=== PATIENT | male | born 1965 | race Caucasian/White ===

== ENCOUNTER 2023-11-23 12:44 | Outpatient (CLI) | payer OTHER, SELFPAY ==
--- NOTE | 2023-11-23 12:59 | ECG_ITS ---
Measurements Intervals [place] Rate: 65 P: -9 NE: 157 QRS: -26 QRSD: 100 T: -6 QT: 421 QTc: 439 Interpretive Statements SINUS RHYTHM BORDERLINE LEFT AXIS DEVIATION [QRS AXIS < -20] NO PREVIOUS ECG AVAILABLE FOR COMPARISON Electronically Signed On 11-23-2023 21:05:35 SYSTEMS MGR by Di Bruce M.D.
== END 2023-11-23 12:45 | disposition home or self-care (01) ==
LOC: ANHSURGERY 12:49
PROVIDERS: PCP Internal Medicine; Visit Provider Surgery
DX: Z01.818 Encounter for other preprocedural examination (principal); K42.9 Umbilical hernia without obstruction or gangrene; E78.00 Pure hypercholesterolemia, unspecified
CPT/HCPCS: 36415; 86850; 86900; 86901; 93005

== ENCOUNTER 2023-11-30 00:33 | Day surgery (SDC) | payer OTHER, SELFPAY ==
[2023-11-17 11:06] VITALS: BMI 36.6
--- NOTE | 2023-11-17 11:12 | PC.NURSE ---
Report to the Outpatient Waiting Room, entrance under the green pavilion located off [facility], at time 6:00 on date 11/30/23. Planned Procedure Time: 7:30. Time changes happen often and if your time is changed the preop area will call you the afternoon before. - You and your visitor will be asked to self-screen and do not enter if you have any COVID symptoms. - A mask is optional within the hospital at this time. Patients may have clear liquids (water, carbonated beverages, clear teas, apple juice) until 3 hours prior to surgery (4:30) with a maximum of 20 ounces. - No food from midnight until time of surgery Take the following medications with a SIP of water the morning of surgery: NONE DO NOT STOP ANY OF YOUR OTHER PRESCRIPTION MEDICATIONS PRIOR TO SURGERY ?EXCEPT THE FOLLOWING Medications to discontinue per physician: N/A Date to take last dose: N/A Please no make-up, nail slovenian, hairspray, perfume, deodorant, or body powder the day of surgery. No jewelry (including any body piercings) or valuables the day of surgery, leave them at home. Please take a shower or bath the night before, or the morning of, surgery with an antibacterial soap. Wear comfortable, loose fitting clothing. - Jewelry must be removed prior to entering the operating room. Rings and piercings that are not removed may be cut off. - The hospital will not accept responsibility for valuables. - Please leave all valuables, including medications, at home the day of surgery. If you are going home after surgery, a licensed putaway driver must drive you home. - NO public transportation without another adult if you receive anesthesia. - We recommend that an adult stay with you for 24 hours following discharge. - We also recommend that you do not drive, make important decision, drink alcoholic beverages, or take any drugs that were not prescribed by your health care provider for at least 24 hours after your discharge time. Follow any additional instructions given to you from your surgeon. If you or anyone in your household have experienced Covid symptoms in the past week, please notify your surgeon or the nurse liaison at the phone number below for possible testing. Telephone instructions given to PT - ANDRES FOSTER and asked if any additional questions and then verbalized understanding. Patient advised to call surgeon office or pre surgery nurse liaison [phone] if any additional questions.
--- NOTE | 2023-11-27 11:18 | PM.SD2 ---
Same Day Admit/Disch: HPI History of Present Illness Chief complaint: Umb Hernia Narrative: Bret Burr is a 58 year old male with a 4+ year history of a hernia just above but part of the umbilicus. He was seen in the office and is taken now to surgery for robotic laparoscopic repair with mesh. 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 Spiritual care concerns: No Same Day Admit/Disch: Med Pre-admit Medications Home Medications Medication Instructions Recorded Confirmed Type ezetimibe 10 mg tablet 10 mg PO DAILY 05/02/23 11/17/23 History ketorolac 10 mg tablet 10 mg PO Q6H 4 days #16 tabs 11/30/23 Rx oxycodone-acetaminophen 5 mg-325 0.5 - 1 tablet PO Q6H PRN pain #10 11/30/23 Rx mg tablet tabs Review of Systems Review of Systems All systems reviewed & are unremarkable except as noted in HPI and below (HPI and those items below) Constitutional Constitutional: Denies chills and Denies fever(s) Cardiovascular Cardiovascular: Denies chest pain, Denies diaphoresis, Denies dyspnea and Denies paroxysmal nocturnal dyspnea Respiratory Respiratory: Denies chest congestion, Denies cough and Denies dyspnea Integumentary/Breasts Skin/Breast: Denies lesions and Denies rash Exam Const: General: comfortable, no acute distress, alert and awake HENMT: Head: normocephalic and atraumatic Mouth: Yes Normal oral and palatal mucosa present Eyes: Conjunctivae: conjunctivae normal Pupils: Equal, round and reactive pupils present EOM: EOMs intact bilaterally Neck: Neck: normal visual inspection, no lymphadenopathy and nontender Resp: Effort & Inspection: normal respiratory effort Auscultation: clear to auscultation bilaterally Cardio: Rate: regular rate Rhythm: regular rhythm Heart sounds: no gallops, no murmurs and no rubs GI: Inspection: non-distended and visible herniation (umbilical, upper margin) GI Palp: Yes Soft to palpation, No Tenderness to palpation present (GI), No Hepatomegaly present, No Splenomegaly present and Yes Hernia present umbilical (approx 2cm defect, not fully reducible, nontender) < 3 cm Skin: Lesions: no lesions Rashes: no rashes Neuro: General: no focal motor deficits and CN's II-XI intact bilaterally Cranial nerves: Yes Equal, round and reactive pupils present, Yes Bilaterally intact EOM present, Yes facial symmetry and Yes Midline tongue present Speech: normal speech Motor exam (neuro): 5/5 motor strength present throughout and Motor abnormalities not present Extrem: General: no clubbing, cyanosis or edema and edema Psych: Affect: normal affect Thought process: Normal thought process present Insight: Good insight present (Psych) DS: Summary Time Spent with Patient Time attestation: Total time spent providing and/or coordinating discharge services: DS: Admitting Diagnosis Discharge Date 11/30/23 Admitting Diagnosis umbilical hernia--2cm defect by exam. Plan to repair with robotic laparoscopic technique. Procedure, alternatives, risks, benefits, and usual recovery discussed. All questions were answered. He agrees to go ahead. DS: Discharge Diagnosis Discharge Diagnosis (1) Umbilical hernia without mention of obstruction or gangrene: Qualifiers: Obstruction and gangrene presence: without obstruction or gangrene Qualified Code(s): K42.9 - Umbilical hernia without obstruction or gangrene Code(s): K42.9 - Umbilical her
[2023-11-30] VITALS (11 sets, daily range): BP systolic 106–135; BP diastolic 70–92; PULSE 60–80; RESP 13–19; TEMP 36.3–36.5; O2SAT 93–98
[2023-11-30] MEDS: LACTATED RINGERS 1,000 ML 30 ML IV CONT (06:35)
[2023-11-30] MEDS: KETOROLAC 15 MG/ML VIAL (*BKC) IV PUSH (06:41)
[2023-11-30] MEDS: ACETAMINOPHEN 500 MG TABLET 1000 MG PO (06:41)
--- NOTE | 2023-11-30 07:01 | WPDANESEPPF ---
Anes - Initial Pre Proc Eval Procedure: Operation Date: 11/30/23 07:30 Proposed Procedures p Robotic Laparoscopic Umbilical Hernia Repair with Mesh - Tariq Cadet MD Date/Time: 11/30/23 07:01 Surgeon: Tariq Cadet MD Pre Op Diagnosis: Umb Hernia Patient Data Age: 58 Gender: M Height: 1.88 m Weight: 125 kg Last Vital Signs Temp 36.3 C L 11/30/23 06:22 Pulse 73 11/30/23 06:22 Resp 18 11/30/23 06:22 BP 122/78 11/30/23 06:22 Pulse Ox 98 11/30/23 06:22 O2 Del Method Room Air 11/30/23 06:22 Allergies Allergy/AdvReac Type Severity Reaction Status Date / Time Penicillins Allergy Unknown Hives Verified 11/30/23 06:46 Home Medications Medication Instructions Recorded Confirmed Type ezetimibe 10 mg tablet 10 mg PO DAILY 05/02/23 11/17/23 History Patient hx anesthesia problems: none Family hx anesthesia problems: none Results Review: All pre-operative results and documents have been reviewed as part of the pre-operative evaluation. 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 Informed Consent: The patient's anesthetic plan and its attendant risks and benefits were discussed with the patient/family/POA. Questions were solicited and answers provided to the satisfaction of the patient/family/POA.
--- NOTE | 2023-11-30 07:15 | WPDHPUPDATE1 ---
History and Physical Update Update Date/Time: 11/30/23 07:15 History and Physical has been reviewed, including an updated exam of the patient. There are NO changes in the patient's condition. Risks, benefits, and alternatives have been discussed and questions answered. Patient agrees to proceed with procedure.
[2023-11-30] MEDS: ceFAZolin 3 GM/D5W 100 ML 100 ML IVPB (07:30)
[2023-11-30] MEDS: BUPIVACAINE/EPINEPHRINE 0.5% 50 ML VIAL 30 ML INFILTRATE (08:08)
--- NOTE | 2023-11-30 09:41 | P.OP_ITS ---
Procedure Note - Detailed Date of Procedure 11/30/23 Pre-op Diagnosis Umbilical hernia with 2 cm defect Post-op Diagnosis Other (Umbilical hernia with 4 cm defect) Procedure Performed Robotic laparoscopic repair umbilical hernia with 4 cm defect with mesh Surgeon Tariq Cadet MD Electric Mule Driver Blas WRIGHT Anesthesia General and Local Indications Patient has had a bulge just at the upper margin of his umbilicus for 4 years. Recently it has gotten larger and is occasionally painful with a pressure sensation. He was seen in the office and is now taken to surgery for robotic laparoscopic repair with mesh. Findings The umbilical hernia was 2 cm in length and was oriented transversely. However, he had a 2nd hernia defect that was 1-1/2 cm and was located about a 0.5 cm to the right of the umbilical hernia. Both hernias were repaired at the same procedure. Description of Procedure Patient was taken to surgery and induced into general anesthesia. The abdomen is prepped and draped. The left side was slightly elevated. The initial trocar was a left subcostal 5 mm applied Medical optical trocar. It was placed in the abdomen without difficulty and insufflation was carried out. We then placed a left lower quadrant robotic trocar followed by another robotic trocar between these 2. Finally the 5 mm trocar was switched out for an 8 mm trocar. The robot was brought into the field and docked. The camera was placed and targeted. Instruments were placed and positioned. The surgeon then went to the robotic console. Initially, reduction of the properitoneal fat from the hernia defect was carried out. There was a quite a bit of this up in the hernia. I divided some of the left-sided attachments of this from the abdominal wall and then dissected around the edges of the hernia. This allowed me to reduce the remainder of the hernia without difficulty. Once this was reduced, I then started dissecting additional fatty tissue from around the hernia defect. It wa s at this point that I saw the 2nd hernia defect which was located more to the patient's right. Dimensions were as noted above. Total hernia defect repaired was 4 cm. I also dissected some of the midline fatty tissue from above and below the hernia defect for mesh placement. And 0 V lock suture was then introduced. Both defects were closed with a running suture of 0 V lock. A 10 x 15 cm mesh was then introduced. The V lock suture was passed through the middle of the mesh and then the mesh was brought up flush to the repair. I used the remainder of the V lock to secure the left side of the mesh to the anterior abdominal wall. 4 2-0 V lock were then placed in the abdominal cavity. I started on the right lateral side of the mesh and then sutured the edges of the mesh to the anterior abdominal wall circumferentially. This went well and all 4 of the suture were used as planned. We then removed the needles that were remaining in the abdomen. The mesh appeared to be in very good shape and well- positioned. The instruments were then removed and the robot was undocked. The trocars were removed and each skin incision was closed with a subcuticular 4-0 Monocryl skin suture. The wounds were dressed with Exofin surgical adhesive. Patient was then awakened and taken to recovery in good condition. Sponge and needle counts were correct x2. Implants 10 x [address] mesh Estimated Blood Loss -5 Drains No Packing No Pathology None sent Complications No immediate complications Condition Stable Disposition PACU [facility] Billing Surgery - Charge Forward: Surgery Billing (Robotic laparoscopic repair 4 cm umbilical hernia with mesh)
[2023-11-30] MEDS: oxyCODONE HCL (*CRX) 5 MG TAB IR PO (10:50)
== END 2023-11-30 12:13 | disposition home or self-care (01) ==
PROVIDERS: PCP Internal Medicine; Visit Provider Surgery
PROC: (CPT 49593; principal; 2023-11-30 07:30)
DX: K42.9 Umbilical hernia without obstruction or gangrene (principal); E78.00 Pure hypercholesterolemia, unspecified; G47.33 Obstructive sleep apnea (adult) (pediatric); E66.9 Obesity, unspecified; Z68.35 Body mass index [BMI] 35.0-35.9, adult; Z99.89 Dependence on other enabling machines and devices
CPT/HCPCS: 49593; S2900; 36415; 86850; 86900; 86901; 93005; A9270; C1781; J0690; J1100; J1170; J1596; J1885; J2250; J2405; J2704; J2710; J3010; J7030; J7120